=== PATIENT | male | born 1975 | race Caucasian/White ===

== ENCOUNTER → 2019-08-05 08:32 | Outpatient (CLI) | payer BC | END | disposition home or self-care (01) | LOC: D.MRI 08:32 | PROVIDERS: ATTEND Orthopaedic Surgery | DX: S53.32XA Traumatic rupture of left ulnar collateral ligament, initial encounter (principal); S62.002A Unspecified fracture of navicular [scaphoid] bone of left wrist, initial encounter for closed fracture ==